=== PATIENT | female | born 1980 | race Hispanic/Latino ===

== ENCOUNTER 2018-05-04 19:05 | Emergency (ER) | payer OTHER | END 2018-05-04 21:00 | disposition home or self-care (01) | LOC: EDH 19:05 | DX: J06.9 Acute upper respiratory infection, unspecified (principal); H57.89 Other specified disorders of eye and adnexa; I10 Essential (primary) hypertension; Z88.8 Allergy status to other drugs, medicaments and biological substances | CPT/HCPCS: 87804 ==